=== PATIENT | female | born 1975 | race Caucasian/White ===

== ENCOUNTER 2018-10-06 05:43 | Day surgery (SDC) | payer OTHER ==
[2018-10-06] MEDS ORDERED: FENTAnyl 50 MCG/ML VIAL (08:07)
[2018-10-06] MEDS ORDERED: MIDAZOLAM 1 MG/ML 2 ML INJ ×2 (08:07→08:08)
== END 2018-10-06 11:38 | disposition home or self-care (01) ==
LOC: GIL 05:43
DX: K29.60 Other gastritis without bleeding (principal)
CPT/HCPCS: 43239; 84703; 88305; 88312

== ENCOUNTER → 2018-10-14 | Outpatient (CLI) | payer OTHER ==
[2018-10-14 10:15] LABS: COLLAGEN/EPI 85 Secs. (51-198)
== END | disposition home or self-care (01) ==
LOC: LAB 08:59
DX: R23.3 Spontaneous ecchymoses (principal)
CPT/HCPCS: 85576